=== PATIENT | female | born 1945 | race Caucasian/White ===

== ENCOUNTER → 2022-12-03 | Outpatient (CLI) | payer MEDICARE | LOC: MAMMO 12:02 | PROVIDERS: ATTEND Internal Medicine | DX: Z12.31 Encounter for screening mammogram for malignant neoplasm of breast (principal); M21.961 Unspecified acquired deformity of right lower leg | CPT/HCPCS: 77067 ==

== ENCOUNTER → 2024-08-04 | Outpatient (REF) | payer MEDICARE | LOC: RAD 14:34 | PROVIDERS: ATTEND Internal Medicine | DX: M70.61 Trochanteric bursitis, right hip (principal) ==